=== PATIENT | male | born 1985 | race Two or more races ===

== ENCOUNTER 2019-03-15 22:04 | Emergency (ER) | payer BC, OTHER ==
[~2019-03-15] VITALS: Ht 180.3 cm; Wt 74.8 kg
[2019-03-15 22:04] VITALS: BP 140/86
--- NOTE | 2019-03-15 23:01 | NUR ---
PT ELOPED FROM ER.
== END 2019-03-15 23:04 | disposition left against medical advice (07) ==
LOC: ER 22:06
DX: Z53.21 Procedure and treatment not carried out due to patient leaving prior to being seen by health care provider (principal)